=== PATIENT | female | born 1995 | race Caucasian/White ===

== ENCOUNTER 2021-03-30 13:10 | Emergency (ER) | payer BC, MEDICAID ==
[~2021-03-30] VITALS: Ht 170.2 cm; Wt 90.9 kg
[~2021-03-30 13:10] MED LIST: ALBU8HFA PO; GUAI600T89 PO
[2021-03-30 15:04] VITALS: BP 112/75
[2021-03-30] MEDS ORDERED: OLOP2.5D12 OP (15:27)
== END 2021-03-30 15:38 | disposition home or self-care (01) ==
LOC: ER 13:10
DX: H10.13 Acute atopic conjunctivitis, bilateral (principal); F15.10 Other stimulant abuse, uncomplicated; Z79.899 Other long term (current) drug therapy; Z00.00 Encounter for general adult medical examination without abnormal findings
CPT/HCPCS: 99282